=== PATIENT | female | born 1960 | race Caucasian/White ===

== ENCOUNTER → 2019-10-30 11:09 | Outpatient (BNVA) | payer SELFPAY | PROVIDERS: Visit Provider Internal Medicine Rheumatology | DX: M05.9 Rheumatoid arthritis with rheumatoid factor, unspecified (principal); Z79.899 Other long term (current) drug therapy | CPT/HCPCS: 36415; 80076; 82306; 82565; 85651; 99204 ==

== ENCOUNTER → 2019-10-30 12:41 | Outpatient (BNVA) | payer SELFPAY | PROVIDERS: Visit Provider Internal Medicine Rheumatology | DX: Z79.899 Other long term (current) drug therapy (principal); M05.9 Rheumatoid arthritis with rheumatoid factor, unspecified; Z71.89 Other specified counseling | CPT/HCPCS: 85025 ==

== ENCOUNTER → 2020-01-21 10:23 | Outpatient (BNVA) | payer SELFPAY | PROVIDERS: PCP Family Medicine; Visit Provider Internal Medicine Rheumatology | DX: M05.9 Rheumatoid arthritis with rheumatoid factor, unspecified (principal); Z79.899 Other long term (current) drug therapy; W57.XXXA Bitten or stung by nonvenomous insect and other nonvenomous arthropods, initial encounter | CPT/HCPCS: 99214 ==

== ENCOUNTER → 2020-04-28 10:42 | Outpatient (BNVA) | payer SELFPAY | PROVIDERS: PCP Family Medicine; Visit Provider Internal Medicine Rheumatology | DX: M05.79 Rheumatoid arthritis with rheumatoid factor of multiple sites without organ or systems involvement (principal); Z79.899 Other long term (current) drug therapy; Z87.828 Personal history of other (healed) physical injury and trauma; E03.9 Hypothyroidism, unspecified; Z79.52 Long term (current) use of systemic steroids | CPT/HCPCS: 99214 ==

== ENCOUNTER → 2020-07-20 13:08 | Outpatient (BNVA) | payer OTHER, SELFPAY | PROVIDERS: PCP Family Medicine; Visit Provider Internal Medicine Rheumatology | DX: M05.79 Rheumatoid arthritis with rheumatoid factor of multiple sites without organ or systems involvement (principal); Z79.899 Other long term (current) drug therapy; L60.8 Other nail disorders; M54.9 Dorsalgia, unspecified; R74.01 Elevation of levels of liver transaminase levels | CPT/HCPCS: 99214 ==

== ENCOUNTER → 2020-12-02 13:00 | Outpatient (BNVA) | payer OTHER, SELFPAY | PROVIDERS: PCP Family Medicine; Visit Provider Internal Medicine Rheumatology | DX: M05.79 Rheumatoid arthritis with rheumatoid factor of multiple sites without organ or systems involvement (principal); Z79.899 Other long term (current) drug therapy; R59.9 Enlarged lymph nodes, unspecified | CPT/HCPCS: 99214 ==

== ENCOUNTER 2020-12-25 14:55 | Outpatient (CLI) | payer OTHER, SELFPAY ==
--- NOTE | 2020-12-25 15:00 | US_ITS ---
WS: [id number] INDICATION: Lump right clavicle TECHNIQUE: Ultrasound soft tissue area of concern FINDINGS: Ultrasound soft tissue area of concern right clavicle. In the area of concern, right clavicle, there is a lymph node measuring 1.2 x 0.5 x 1.2 cm with a nor mal appearance. Preserved fatty hilum. This is likely incidental. Normal left submandibular gland. A few normal size left submandibular lymph nodes. US/US soft tissue head neck [id number] IMPRESSION: Normal lymph node in the area of concern right supraclavicular.
== END 2020-12-25 14:56 | disposition home or self-care (01) ==
LOC: US 14:59
PROVIDERS: PCP Family Medicine; Visit Provider Internal Medicine Rheumatology
DX: R59.9 Enlarged lymph nodes, unspecified (principal)
CPT/HCPCS: 76536

== ENCOUNTER → 2021-03-09 09:44 | Outpatient (BNVA) | payer OTHER, SELFPAY | PROVIDERS: PCP Family Medicine; Visit Provider Internal Medicine Rheumatology | DX: M05.79 Rheumatoid arthritis with rheumatoid factor of multiple sites without organ or systems involvement (principal); Z79.899 Other long term (current) drug therapy; Z71.89 Other specified counseling | CPT/HCPCS: 99214 ==

== ENCOUNTER → 2021-07-06 09:22 | Outpatient (BNVA) | payer OTHER, SELFPAY | PROVIDERS: PCP Family Medicine; Visit Provider Internal Medicine Rheumatology | DX: M05.79 Rheumatoid arthritis with rheumatoid factor of multiple sites without organ or systems involvement (principal); Z79.899 Other long term (current) drug therapy; Z71.89 Other specified counseling | CPT/HCPCS: 99214 ==

== ENCOUNTER 2022-11-16 13:05 | Outpatient (CLI) | payer OTHER, SELFPAY ==
--- NOTE | 2022-11-16 13:30 | US_ITS ---
WS: [email or web address] ULTRASOUND SOFT TISSUES LEFT popliteal fossa. HISTORY: M71.20 - Synovial cyst of popliteal space [Gomez], unspec... COMPARISON: None available. TECHNIQUE: 2-D and color Doppler imaging is submitted. Ultrasound is directed to the popliteal fossa. No soft tissue mass. No cyst or complex cystic collect ion. The visualized artery and vein are normal. US/US soft tissue/extremity [id number] IMPRESSION: Negative ultrasound LEFT popliteal fossa.
== END 2022-11-16 13:06 | disposition home or self-care (01) ==
PROVIDERS: PCP Family Medicine; Visit Provider Internal Medicine Rheumatology
DX: M71.20 Synovial cyst of popliteal space [Baker], unspecified knee (principal)
CPT/HCPCS: 76882

== ENCOUNTER 2023-08-02 10:12 | Outpatient (CLI) | payer OTHER, SELFPAY ==
--- NOTE | 2023-08-02 10:17 | XR_ITS ---
WS: [email or web address] Right shoulder, 4 views, 08/01/2023 Clinical Data: M05.79 - Rheumatoid arthritis with rheumatoid factor of m... Comparison: None. Findings: No fractures or dislocations are seen. The AC joint is normal. The adjacent right clavicle, right sca pula and ribs are normal. The soft tissues are unremarkable. Impression: Negative right shoulder.
--- NOTE | 2023-08-02 10:17 | XR_ITS ---
WS: [email or web address] Left hand, 3 views, 08/02/2023 Clinical Data: M05.79 - Rheumatoid arthritis with rheumatoid factor of m... Comparison: None. Findings: No fractures or dislocations are seen. The soft tissues are unremarkable. The joint spaces are normal No periarticular demineralization or calcifications are seen. Impression: Negative left hand.
--- NOTE | 2023-08-02 10:17 | XR_ITS ---
WS: [email or web address] Right hand, 3 views, 08/02/2023 Clinical Data: M05.79 - Rheumatoid arthritis with rheumatoid factor of m... Comparison: None. Findings: No fractures or dislocations are seen. The soft tissues are unremarkable. The joint space s are normal There is no periarticular demineralization or calcifications seen. Impression: Negative right hand.
--- NOTE | 2023-08-02 10:30 | US_ITS ---
WS: [email or web address] ULTRASOUND SOFT TISSUE AREA OF CONCERN. INDICATION: Pain in upper arm TECHNIQUE: Ultrasound soft tissue area of concern. FINDINGS: Ultrasound soft tissue area of concern upper RIGHT arm. Normal underlying subcutaneous soft tissues. No suspicious findings in the area of concern. Tiny inci dental cyst measuring 2 mm. IMPRESSION: No suspicious findings.
== END 2023-08-02 10:13 | disposition home or self-care (01) ==
LOC: RAD 10:12
PROVIDERS: PCP Family Medicine; Visit Provider Internal Medicine Rheumatology
DX: M05.79 Rheumatoid arthritis with rheumatoid factor of multiple sites without organ or systems involvement (principal); M25.511 Pain in right shoulder; M79.621 Pain in right upper arm
CPT/HCPCS: 73030; 73130; 76882